=== PATIENT | female | born 1960 ===

== ENCOUNTER 2019-06-29 14:30 | Outpatient (CLI) | payer MEDICAID ==
[~2019-06-29] VITALS: Ht 165.1 cm; Wt 58.1 kg
--- NOTE | 2019-06-29 18:30 | Consultation ---
DATE OF CONSULTATION: 06/29/2019 CONSULTING PHYSICIAN: Alcides Mesa M.D. CHIEF COMPLAINT: Dysphagia. HISTORY OF PRESENT ILLNESS: The patient is a 59-year-old female with numerous medical problems, which I will dictate in a second who was referred to us for evaluation of dysphagia, weight loss. PAST MEDICAL HISTORY: 1. Peptic ulcer disease. 2. UTI. 3. Depression. 4. Anxiety. 5. Asthma. 6. Fibromyalgia. 7. Hypertension. 8. Seizure disorder. PAST SURGICAL HISTORY: Cholecystectomy. MEDICATIONS: Please see the long medication reconciliation list. FAMILY HISTORY: Grandmother had laryngeal cancer. SOCIAL HISTORY: The patient denies any tobacco, alcohol, or drug abuse. REVIEW OF SYSTEMS: A 10-point review of systems was performed and pertinent positives in HPI. PHYSICAL EXAMINATION: VITAL SIGNS: Stable. Height is 5 feet 5 inches. Weight is 128. HEENT: Normocephalic and atraumatic. Sclerae anicteric. NECK: Supple. No evidence of obvious lymphadenopathy. CARDIOVASCULAR: Regular rate and rhythm. Plus S1 and S2. LUNGS: Decreased breath sounds bilaterally based on the supine exam. ABDOMEN: Soft and nontender. No rebound. No guarding. No peritoneal sign. EXTREMITIES: No cyanosis, no clubbing, no edema. ASSESSMENT: This is a 59-year-old female with dysphagia, weight loss, chronic reflux disease. PLAN: PPI twice a day. Reflux measures. Plan for endoscopy when the insurance approved. The patient also was encouraged to see an ENT doctor for laryngeal examination. Alcides Mesa M.D. DR: CONTRERAS JOB#: [id number] CC:
[2019-06-30] MEDS ORDERED: GABAPENTIN300 MG ORAL (12:46)
[2019-06-30] MEDS ORDERED: METOPROLOL SUCC25 MG ORAL (12:46)
[2019-06-30] MEDS ORDERED: PROZAC40 MG ORAL (12:46)
[2019-06-30] MEDS ORDERED: DULERA 100 MCG/13 GM INH (12:46)
[2019-06-30] MEDS ORDERED: KLONOPIN1 MG ORAL (12:46)
[2019-06-30] MEDS ORDERED: FAMOTIDINE20 MG ORAL (12:46)
[2019-06-30] MEDS ORDERED: LORATADINE10 M2 PO (12:46)
[2019-06-30] MEDS ORDERED: CYMBALTA30 MG ORAL (12:46)
== END 2019-06-29 16:30 | disposition home or self-care (01) ==
LOC: PAN 14:30
DX: R13.10 Dysphagia, unspecified (principal); Z87.11 Personal history of peptic ulcer disease; F32.9 Major depressive disorder, single episode, unspecified; F41.9 Anxiety disorder, unspecified; M79.7 Fibromyalgia; I10 Essential (primary) hypertension; G40.909 Epilepsy, unspecified, not intractable, without status epilepticus; Z90.49 Acquired absence of other specified parts of digestive tract; R63.4 Abnormal weight loss; K21.9 Gastro-esophageal reflux disease without esophagitis
CPT/HCPCS: G0463